=== PATIENT | male | born 1945 | race Asian ===

== ENCOUNTER 2021-12-11 22:27 | Emergency (ER) | payer OTHER, BC, SELFPAY ==
[~2021-12-11] VITALS: Ht 165.1 cm; Wt 77.1 kg
[2021-12-11 22:30] VITALS: BP_SYST 104
--- NOTE | 2021-12-11 22:40 | NUR ---
Placed in room 8 . Placed on cardiac rehabilitation specialist, blood pressure machine and pulse oximeter. To gown for exam. Side rails up. Family bedside
--- NOTE | 2021-12-11 22:56 | NUR ---
Pt C/O chest pain with SOB x1hr AOX4 Verbally responsive Able to make needs known ECG completed and given to MD for evaluation
[2021-12-11] MEDS ORDERED: ASPIRIN 325 MG TABLET PO ONE (23:00)
[2021-12-11] MEDS ORDERED: NITROGLYCERIN 0.4 MG TAB.SUBL SL ONE ×2 (23:00→23:03)
[2021-12-11] MEDS ORDERED: ASPIRIN 325 MG TABLET ONE (23:02)
--- NOTE | 2021-12-11 23:30 | NUR ---
Blood drawn and sent to lab CoVID Swab also collected and sent to lab
[2021-12-11 23:52] LABS: BASOPHILS # (AUTO) 0.1 K/uL (0.0-0.2); BASOPHILS % (AUTO) 0.8 % (0.0-2.0); EOSINOPHILS # (AUTO) 0.1 K/uL (0.0-0.4); EOSINOPHILS % (AUTO) 1.7 % (0.0-4.0); HEMATOCRIT 34.1 % (36-54); HEMOGLOBIN 11.2 g/dL (14.0-18.0); LYMPHOCYTES # (AUTO) 0.6 K/uL (1.0-5.5); LYMPHOCYTES % (AUTO) 7.7 % (20.5-51.5); MEAN CORPUSCULAR HEMOGLOBIN 28 pg (27-31); MEAN CORPUSCULAR HGB CONC 33 % (32-36); MEAN CORPUSCULAR VOLUME 84 fL (79.0-98.0); MONOCYTES # (AUTO) 0.5 K/uL (0.0-1.0); MONOCYTES % (AUTO) 6.4 % (1.7-9.3); NEUTROPHILS % (AUTO) 83.4 % (40.0-70.0); PLATELET COUNT (AUTO) 228 K/uL (130-430); RED BLOOD CELL COUNT(AUTO) 4.06 MIL/uL (4.2-6.2); RED CELL DISTRIBUTION WIDTH 14.6 % (9.0-15.0); WHITE BLOOD COUNT (AUTO) 8.4 K/uL (4.8-10.8)
[2021-12-11 23:56] LABS: ANION GAP 12 (5-15); CALCIUM 8.7 mg/dL (8.4-11.0); CHLORIDE 104 mmol/L (98-107); CREATININE 3.99 mg/dL (0.55-1.30); GLUCOSE 253 mg/dL (70-99); POTASSIUM 4.9 mmol/L (3.5-5.1); SODIUM SERUM 138 mmol/L (136-145); UREA NITROGEN, BLOOD 45 mg/dL (8-21)
[2021-12-12] MEDS ORDERED: NITROGLYCERIN 250 ML IV ONE
[2021-12-12] MEDS ORDERED: ACETAMINOPHEN 500 MG TABLET PO ONE
[2021-12-12 00:04] LABS: ALANINE AMINOTRANSFERASE 31 U/L (12-78); ALBUMIN 3.5 g/dL (3.4-4.8); ASPARTATE AMINOTRANSFERASE 25 U/L (10-37); TOTAL BILIRUBIN 0.2 mg/dL (0.0-1.0)
[2021-12-12] MEDS ORDERED: NACL 0.9% 1,000 ML IV ONE (00:15)
[2021-12-12] MEDS ORDERED: HEPARIN SODIUM,PORCINE 5,000 UNITS/ML VIAL ONE (00:40)
--- NOTE | 2021-12-12 00:44 | NUR ---
Report given to Nahun DEUTSCH([facility] nurse)
[2021-12-12] MEDS ORDERED: HEPARIN SODIUM,PORCINE 5,000 UNITS/ML VIAL IVP ONE (00:45)
--- NOTE | 2021-12-12 00:50 | NUR ---
Patient to be transferred to [facility]. Is being transferred due to higher level of care. Receiving facility has accepting physician and available space. ER physician has signed transfer form. Patient or responsible republican has agreed to transfer and signed form. Patient belongings inventoried and will be sent with patient. Copy of nursing notes, lab reports, EKG, Physicians Orders and X-rays to be sent with patient. Report called to receiving facility. Receiving physician is Dr Preston. Pt transported @[id number]
[2021-12-12 00:55] VITALS: BP_SYST 135
== END 2021-12-12 00:50 | disposition short-term general hospital (02) ==
LOC: SED 22:27
DX: I21.4 Non-ST elevation (NSTEMI) myocardial infarction (principal); N17.9 Acute kidney failure, unspecified; E11.65 Type 2 diabetes mellitus with hyperglycemia; Z20.822 Contact with and (suspected) exposure to COVID-19
CPT/HCPCS: 36415; 71045; 80053; 83880; 84484; 85025; 87426; 93005 ×2; 96365; 96375; 99285; J1644; J3490